=== PATIENT | male | born 1985 | race Caucasian/White ===

== ENCOUNTER 2016-10-28 09:04 | Emergency (ER) | payer SELFPAY ==
[~2016-10-28] VITALS: Ht 182.9 cm; Wt 78.0 kg
[~2016-10-28 09:04] MED LIST: CYCL10TA2 PO; OXYC-328 PO; OXYC10TA45 PO
[2016-10-28 09:41] VITALS: BP 113/68
[2016-10-28] MEDS ORDERED: prednisoLONE 15 MG/5 ML ORAL SOLUTION. PO ONE (09:45)
[2016-10-28] MEDS ORDERED: PRED15SO45 PO (09:50)
[2016-10-28] MEDS ORDERED: HYDR15SO4 PO (09:50)
--- NOTE | 2016-10-28 09:50 | PHYS DOC ---
Past Medical History Past Medical History: No Pertinent History Additional Past Medical Histor: chronic back pain Past Surgical History: Other Additional Past Surgical Histo: left hip scope Alcohol Use: Occasionally Drug Use: Marijuana Adult General Chief Complaint Chief Complaint: SORE THROAT HPI HPI 31-year-old male presenting to the emergency department today with sore throat. It is been present for 3 days. It is an aching pain worse with swallowing nonradiating intermittent moderate. ROS: He denies stridor difficulty breathing. He is able to drink water during the examination without difficulty. He denies chest pain shortness of breath. All other review of systems is negative unless otherwise noted in history of present illness. ED course: 31-year-old gentleman presenting to the emergency department today with sore throat. Suggestive of strep throat. Examination shows a she dates on the tonsils bilaterally without any evidence of peritonsillar abscess. Patient is able to drink water and secretions in the emergency department without difficulty. Strep test sent. strep neg. Oral steroids given. The patient was then discharged home in stable condition to follow up with their primary care physician over the next 2-3 days. They were to return if their symptoms worsened or if they were concerned for any reason. [id number] discharge instructions and return precautions were given. Patient's questions were answered to their satisfaction. Patient is comfortable plan. Review of Systems Review of Systems SEE ABOVE. Current Medications Current Medications Current Medications Medications (Trade) Dose Ordered Sig/Matteo Start Time Stop Time Status Last Admin Dose Admin Prednisone (Prelone) 50 mg 1X ONCE 10/28/16 09:30 10/28/16 09:31 UNV Allergies Allergies Allergies Coded Allergies Type Severity Reaction Last Updated Verified morphine Allergy Mild N/V 11/25/13 Yes Physical Exam Physical Exam Constitutional: Well developed, well nourished, no acute distress, non-toxic appearance. [] HENT: Normocephalic, atraumatic, bilateral external ears normal,. see above Eyes: PERRLA, EOMI, conjunctiva normal, no discharge. [] Neck: Normal range of motion, no tenderness, supple, no stridor. [] Cardiovascular:Heart rate regular rhythm, no murmur [] Lungs & Thorax: Bilateral breath sounds clear to auscultation [] Abdomen: Bowel sounds normal, soft, no tenderness, no masses, no pulsatile masses. [] Skin: Warm, dry, no erythema, no rash. [] Back: No tenderness, no CVA tenderness. [] Extremities: No tenderness, no cyanosis, no clubbing, ROM intact, no edema. [] Neurologic: Alert and oriented X 3, normal motor function, normal sensory function, no focal deficits noted. [] Psychologic: Affect normal, judgement normal, mood normal. [] Current Patient Data Vital Signs Vital Signs Date Time Temp Pulse Resp B/P (MAP) Pulse Ox O2 Delivery O2 Flow Rate FiO2 10/28/16 09:11 99.1 94 16 98 Room Air 99.1 EKG EKG [] Radiology/Procedures Radiology/Procedures [] Course & Med Decision Making Course & Med Decision Making Pertinent Labs and Imaging studies reviewed. (See chart for details) [] Dragon Disclaimer Dragon Disclaimer This electronic medical record was generated, in whole or in part, using a voice recognition dictation system. Departure Departure Impression: Primary Impression: Viral pharyngitis Disposition: HOME, SELF-CARE Condition: STABLE Referrals: VIOLA FUNG MD (PCP) Patient Instructions: Viral Pharyngitis Additional Instructions: Thank you for allowing us to participate in your care today. Followup with your primary care physician in 3 days if your symptoms do not improve. Call your Primary Doctor tomorrow and inform them of your visit today. If you do not have a primary care provider you can ask for a list of our primary care providers. Return to the emergency department you have any new or concerning findings. This should be evaluated by the primary care physician and any necessary consulting services for continued management within a few days after discharge. Return to emergency room if you have any new or concerning symptoms including but not limited to fever, chills, nausea, vomiting, intractable pain, any new rashes, chest pain, shortness of air, uncontrolled bleeding, difficulty breathing, and/or vision loss. Scripts Prednisolone (PREDNISOLONE) 15 Mg/5 Ml Solution 50 MG PO DAILY for 4 Days, MISC Prov: DAVID DEGROOT MD 10/28/16 Hydrocodone Bit/Acetaminophen (HYDROCODONE-APAP 7.5-325/15 SOLN ) 15 Ml Solution 10 ML PO PRN Q6HRS Y for PAIN, #80 ML 0 Refills Prov: DAVID DEGROOT MD 10/28/16 DAVID DEGROOT MD Oct 28, 2016 09:50
[2016-10-28 09:58] LABS: NEGATIVE OBC STREP NEG
[2016-10-28 09:59] LABS: POSITIVE OBC STREP POS
== END 2016-10-28 10:03 | disposition home or self-care (01) ==
LOC: ER 09:04
DX: J02.8 Acute pharyngitis due to other specified organisms (principal); B97.89 Other viral agents as the cause of diseases classified elsewhere; G89.29 Other chronic pain; F12.10 Cannabis abuse, uncomplicated; Z88.5 Allergy status to narcotic agent
CPT/HCPCS: 87070; 87880; 99283; J7510